=== PATIENT | female | born 1960 | race Caucasian/White ===

== ENCOUNTER 2019-03-14 19:52 | Inpatient (IN) | payer OTHER ==
[2019-03-14 20:33] LABS: ADD UMIC NO; UR ASCORBIC ACID NEGATIVE (NEGATIVE); UR BILIRUBIN (Dip) NEGATIVE (NEGATIVE); UR BLOOD (Dip) NEGATIVE (NEGATIVE); UR CLARITY CLEAR (CLEAR); UR COLOR YELLOW (YELLOW); UR GLUCOSE (Dip) NEGATIVE (NEGATIVE); UR KETONES (Dip) NEGATIVE (NEGATIVE); UR LEUKOCYTE ESTERASE (Dip) NEGATIVE Leu/ul (NEGATIVE); UR NITRITE (Dip) NEGATIVE (NEGATIVE); UR SPECIFIC GRAVITY (Dip) 1.013 (1.003-1.030); UR TOTAL PROTEIN (Dip) NEGATIVE (NEGATIVE); UR UROBILINOGEN (Dip) NEGATIVE (NEGATIVE)
[2019-03-14] MEDS ORDERED: HYDROCODONE/APAP (5/325) TAB PO (21:00)
[2019-03-14] MEDS ORDERED: SPECIAL NON-STANDARD MEDICATION PO (22:30)
[2019-03-14] MEDS: HEPARIN 5,000 UNIT/1 ML VIAL SC (23:54)
[2019-03-15] MEDS ORDERED: BISACODYL 10 MG SUPP PR (03:30)
[2019-03-15] MEDS ORDERED: MAGNESIUM HYDROXIDE 30ML CUP PO (03:30)
[2019-03-15 06:27] LABS: ADD MAN DIFF? NO
[2019-03-15 06:32] LABS: BASOPHIL # 0.1 10^3/ul (0.0-0.1); BASOPHILS % 0.6 % (0.0-2.0); EOSINOPHILS # 0.4 10^3/ul (0.0-0.5); EOSINOPHILS % 3.3 % (0.0-7.0); HEMATOCRIT 39.9 % (37.0-47.0); HEMOGLOBIN 12.9 g/dl (12.0-16.0); LYMPHOCYTES # 2.7 10^3/ul (0.8-2.9); LYMPHOCYTES % 24.5 % (15.0-51.0); MEAN CORPUSCULAR HEMOGLOBIN 28.4 pg (29.0-33.0); MEAN CORPUSCULAR HGB CONC 32.3 g/dl (32.0-37.0); MEAN CORPUSCULAR VOLUME 87.7 fl (82.0-101.0); MEAN PLATELET VOLUME 10.8 fl (7.4-10.4); MONOCYTE # 1.1 10^3/ul (0.3-0.9); MONOCYTES % 9.8 % (0.0-11.0); NEUTROPHIL # 6.8 10^3/ul (1.6-7.5); NEUTROPHILS % 61.2 % (39.0-77.0); PLATELET COUNT 418 10^3/UL (140-415); RED BLOOD COUNT 4.55 10^6/ul (4.20-5.40); RED CELL DISTRIBUTION WIDTH 13.1 % (11.5-14.5)
[2019-03-15 06:56] LABS: ALANINE AMINOTRANSFERASE 84 IU/L (13-69); ALBUMIN 4.1 g/dl (3.3-4.9); ALBUMIN/GLOBULIN RATIO 1.51; ALKALINE PHOSPHATASE 112 IU/L (42-121); ANION GAP 9 (5-13); ASPARTATE AMINO TRANSFERASE 46 IU/L (15-46); BILIRUBIN,INDIRECT 0.7 mg/dl (0-1.1); BILIRUBIN,TOTAL 0.7 mg/dl (0.2-1.3); BLOOD UREA NITROGEN 15 mg/dl (7-20); CALCIUM 9.6 mg/dl (8.4-10.2); CARBON DIOXIDE 25 mmol/L (21-31); CHLORIDE 107 mmol/L (97-110); CREATININE 0.64 mg/dl (0.44-1.00); Estimated GFR > 60 mL/min (>60); GLUCOSE 98 mg/dl (70-220); POTASSIUM 4.4 mmol/L (3.5-5.1); SODIUM 141 mmol/L (135-144); TOTAL PROTEIN 6.8 g/dl (6.1-8.1)
[2019-03-15] MEDS: CYANOCOBALAMIN 500 MCG TAB NGT (08:36)
[2019-03-15] MEDS: FAMOTIDINE 20 MG TAB PO ×2 (08:36→20:23)
[2019-03-15] MEDS: CLOPIDOGREL 75 MG TAB PO (08:36)
[2019-03-15] MEDS: DOCUSATE SODIUM 100 MG CAP PO ×2 (08:37→20:23)
[2019-03-15] MEDS: ASPIRIN (EC) 81 MG TAB PO (08:37)
[2019-03-15] MEDS: HEPARIN 5,000 UNIT/1 ML VIAL SC ×2 (08:38→20:27)
[2019-03-15] MEDS: LORATADINE 10 MG TAB PO (09:43)
[2019-03-15] MEDS: ATORVASTATIN 80 MG TAB PO (20:24)
[2019-03-16] MEDS: ZOLPIDEM 5 MG TAB PO (00:18)
[2019-03-16] MEDS: LORATADINE 10 MG TAB PO (08:41)
[2019-03-16] MEDS: FAMOTIDINE 20 MG TAB PO ×2 (08:41→21:11)
[2019-03-16] MEDS: CYANOCOBALAMIN 500 MCG TAB NGT (08:41)
[2019-03-16] MEDS: ASPIRIN (EC) 81 MG TAB PO (08:41)
[2019-03-16] MEDS: CLOPIDOGREL 75 MG TAB PO (08:41)
[2019-03-16] MEDS: DOCUSATE SODIUM 100 MG CAP PO ×2 (08:41→21:11)
[2019-03-16] MEDS: HEPARIN 5,000 UNIT/1 ML VIAL SC (08:49)
[2019-03-16] MEDS: ATORVASTATIN 80 MG TAB PO (21:11)
[2019-03-17] MEDS: CLOPIDOGREL 75 MG TAB PO (09:25)
[2019-03-17] MEDS: ASPIRIN (EC) 81 MG TAB PO (09:25)
[2019-03-17] MEDS: FAMOTIDINE 20 MG TAB PO ×2 (09:25→20:54)
[2019-03-17] MEDS: CYANOCOBALAMIN 500 MCG TAB NGT (09:25)
[2019-03-17] MEDS: LORATADINE 10 MG TAB PO (09:25)
[2019-03-17] MEDS: DOCUSATE SODIUM 100 MG CAP PO ×2 (09:25→20:54)
[2019-03-17 15:32] LABS: HEPATITIS B SURFACE ANTIGEN NEGATIVE (NEGATIVE)
[2019-03-17 15:51] LABS: HEPATITIS C VIRAL ANTIBODY REACTIVE (NEGATIVE)
[2019-03-17] MEDS: ATORVASTATIN 80 MG TAB PO (20:54)
[2019-03-17] MEDS: LACTULOSE 30ML CUP PO (20:55)
[2019-03-17 21:40] LABS: RAPID PLASMA REAGIN NONREACTIVE (NR)
[2019-03-18] MEDS: LORATADINE 10 MG TAB PO (09:37)
[2019-03-18] MEDS: ASPIRIN (EC) 81 MG TAB PO (09:37)
[2019-03-18] MEDS: DOCUSATE SODIUM 100 MG CAP PO ×2 (09:37→20:30)
[2019-03-18] MEDS: FAMOTIDINE 20 MG TAB PO ×2 (09:37→20:30)
[2019-03-18] MEDS: CYANOCOBALAMIN 500 MCG TAB NGT (09:38)
[2019-03-18] MEDS: CLOPIDOGREL 75 MG TAB PO (09:38)
[2019-03-18] MEDS: ATORVASTATIN 80 MG TAB PO (20:30)
[2019-03-19] MEDS: DOCUSATE SODIUM 100 MG CAP PO ×2 (08:57→21:00)
[2019-03-19] MEDS: LORATADINE 10 MG TAB PO (08:58)
[2019-03-19] MEDS: CLOPIDOGREL 75 MG TAB PO (09:09)
[2019-03-19] MEDS: FAMOTIDINE 20 MG TAB PO ×2 (09:09→21:17)
[2019-03-19] MEDS: CYANOCOBALAMIN 500 MCG TAB NGT (09:09)
[2019-03-19] MEDS: ASPIRIN (EC) 81 MG TAB PO (09:09)
[2019-03-19] MEDS: ATORVASTATIN 80 MG TAB PO (21:17)
[2019-03-20] MEDS: DOCUSATE SODIUM 100 MG CAP PO ×2 (09:00→21:00)
[2019-03-20] MEDS: CYANOCOBALAMIN 500 MCG TAB NGT (09:50)
[2019-03-20] MEDS: ASPIRIN (EC) 81 MG TAB PO (09:51)
[2019-03-20] MEDS: LORATADINE 10 MG TAB PO (09:51)
[2019-03-20] MEDS: FAMOTIDINE 20 MG TAB PO ×2 (10:00→20:52)
[2019-03-20] MEDS: CLOPIDOGREL 75 MG TAB PO (10:49)
[2019-03-20] MEDS: ACETAMINOPHEN 325 MG TAB PO (14:09)
[2019-03-20] MEDS: ATORVASTATIN 80 MG TAB PO (20:52)
[2019-03-21] MEDS: LORATADINE 10 MG TAB PO (09:00)
[2019-03-21] MEDS: DOCUSATE SODIUM 100 MG CAP PO (09:00)
[2019-03-21] MEDS: CYANOCOBALAMIN 500 MCG TAB NGT (09:05)
[2019-03-21] MEDS: CLOPIDOGREL 75 MG TAB PO (09:07)
[2019-03-21] MEDS: ASPIRIN (EC) 81 MG TAB PO (09:07)
[2019-03-21] MEDS: FAMOTIDINE 20 MG TAB PO (09:08)
== END 2019-03-21 13:45 | disposition home health service (06) | DRG 57 ==
LOC: VRC 19:52
DX: I69.351 Hemiplegia and hemiparesis following cerebral infarction affecting right dominant side (principal); D64.9 Anemia, unspecified; E78.5 Hyperlipidemia, unspecified; E78.00 Pure hypercholesterolemia, unspecified; R91.1 Solitary pulmonary nodule; Z79.02 Long term (current) use of antithrombotics/antiplatelets; Z79.82 Long term (current) use of aspirin; Z74.09 Other reduced mobility; G31.84 Mild cognitive impairment of uncertain or unknown etiology; I69.920 Aphasia following unspecified cerebrovascular disease; Z72.0 Tobacco use; I65.23 Occlusion and stenosis of bilateral carotid arteries
CPT/HCPCS: 80053; 81003; 84443; 85025; 86592; 86803; 87081; 87086; 87340; 92507; 92523; 92610; 97110; 97112; 97116; 97163; 97530; 97535

== ENCOUNTER 2019-03-22 01:23 | Emergency (ER) | payer OTHER ==
[2019-03-22 03:36] LABS: ADD MAN DIFF? NO
[2019-03-22 03:57] LABS: ANION GAP 10 (5-13); BLOOD UREA NITROGEN 21 mg/dl (7-20); CALCIUM 9.3 mg/dl (8.4-10.2); CARBON DIOXIDE 24 mmol/L (21-31); CHLORIDE 106 mmol/L (97-110); CREATININE 0.71 mg/dl (0.44-1.00); Estimated GFR > 60 mL/min (>60); GLUCOSE 90 mg/dl (70-220); POTASSIUM 3.9 mmol/L (3.5-5.1); SODIUM 140 mmol/L (135-144)
[2019-03-22 04:09] LABS: TROPONIN-I < 0.012 ng/ml (0.000-0.120)
[2019-03-22 04:10] LABS: WHITE BLOOD COUNT 11.4 10^3/ul (4.8-10.8)
[2019-03-22 04:10] LABS: BASOPHIL # 0.1 10^3/ul (0.0-0.1); BASOPHILS % 0.9 % (0.0-2.0); EOSINOPHILS # 0.3 10^3/ul (0.0-0.5); HEMATOCRIT 35.4 % (37.0-47.0); HEMOGLOBIN 11.6 g/dl (12.0-16.0); LYMPHOCYTES # 2.3 10^3/ul (0.8-2.9); LYMPHOCYTES % 20.5 % (15.0-51.0); MEAN CORPUSCULAR HEMOGLOBIN 28.9 pg (29.0-33.0); MEAN CORPUSCULAR HGB CONC 32.8 g/dl (32.0-37.0); MEAN CORPUSCULAR VOLUME 88.1 fl (82.0-101.0); MEAN PLATELET VOLUME 10.9 fl (7.4-10.4); MONOCYTE # 0.8 10^3/ul (0.3-0.9); MONOCYTES % 6.9 % (0.0-11.0); NEUTROPHIL # 7.8 10^3/ul (1.6-7.5); NEUTROPHILS % 68.3 % (39.0-77.0); PLATELET COUNT 448 10^3/UL (140-415); RED BLOOD COUNT 4.02 10^6/ul (4.20-5.40); RED CELL DISTRIBUTION WIDTH 13.2 % (11.5-14.5)
== END 2019-03-22 05:25 | disposition home or self-care (01) ==
LOC: E/R 01:23
DX: R07.9 Chest pain, unspecified (principal); F17.210 Nicotine dependence, cigarettes, uncomplicated; R40.2252 Coma scale, best verbal response, oriented, at arrival to emergency department; R40.2142 Coma scale, eyes open, spontaneous, at arrival to emergency department; R40.2362 Coma scale, best motor response, obeys commands, at arrival to emergency department
CPT/HCPCS: 36415; 71045; 80048; 84484; 85025; 93005; 99285-25